=== PATIENT | male | born 1970 | race Caucasian/White ===

== ENCOUNTER 2017-07-27 14:39 | Emergency (ER) | payer MEDICARE, MEDICAID ==
[~2017-07-27] VITALS: Ht 190.5 cm; Wt 129.3 kg
[2017-07-27 15:25] LABS: BASOPHILS # (AUTO) 0.1 X10'3 (0-0.2); BASOPHILS % (AUTO) 1.1 % (0-1); EOSINOPHILS # (AUTO) 0.3 X10'3 (0-0.9); EOSINOPHILS % (AUTO) 2.3 % (0-6); HEMATOCRIT 43.8 % (42.0-52.0); LYMPHOCYTES # (AUTO) 2.2 X10'3 (1.1-4.8); LYMPHOCYTES % (AUTO) 18.6 % (21-51); MEAN CORPUSCULAR HEMOGLOBIN 30.3 PG (27.0-31.0); MEAN CORPUSCULAR HGB CONC 34.3 % (33.0-36.5); MEAN CORPUSCULAR VOLUME 88.2 FL (78-98); MEAN PLATELET VOLUME 8.1 FL (7.4-10.4); MONOCYTES # (AUTO) 0.8 X10'3 (0-0.9); MONOCYTES % (AUTO) 6.2 % (2-12); NEUTROPHILS # (AUTO) 8.7 X10'3 (1.8-7.7); NEUTROPHILS % (AUTO) 71.8 % (42-75); PLATELET COUNT 212 X10'3 (140-440); RED BLOOD COUNT 4.97 X10'6 (4.70-6.10); RED CELL DISTRIBUTION WIDTH 14.5 % (11.5-14.5); WHITE BLOOD COUNT 12.1 X10'3 (4.5-11.0)
[2017-07-27 15:32] LABS: CLARITY,URINE CLEAR (Clear); COLOR,URINE YELLOW (Yellow); GLUCOSE, URINE NEGATIVE (Neg); KETONES,URINE NEGATIVE (Neg); LEUKOCYTE ESTERASE ,URINE NEGATIVE (Neg); NITRITES, URINE NEGATIVE (Neg); OCCULT BLOOD,URINE NEGATIVE (Neg); PH,URINE 5.5 (4.8-8.0); PROTEIN,URINE NEGATIVE (Neg); UROBILINOGEN,URINE 0.2 E.U/dL (0.2-1.0)
[2017-07-27 15:42] LABS: ALANINE AMINOTRANSFERASE 59 U/L (12-78); ALBUMIN/GLOBULIN RATIO 1.1 (1.1-1.5); ALKALINE PHOSPHATASE 72 IU/L (46-116); ANION GAP 11 (8-16); ASPARTATE AMINO TRANSFERASE 60 U/L (10-37); BILIRUBIN,TOTAL 0.5 MG/DL (0.1-1.0); BLOOD UREA NITROGEN 17 MG/DL (7-18); CALCIUM 9.5 MG/DL (8.5-10.1); CHLORIDE 106 MMOL/L (99-107); CREATININE 1.31 MG/DL (0.60-1.10); GLUCOSE 121 MG/DL (70-104); POTASSIUM 3.9 MMOL/L (3.5-5.1); SODIUM 141 MMOL/L (135-145); TOTAL CARBON DIOXIDE 24.5 MMOL/L (24-32); TOTAL PROTEIN 7.5 G/DL (6.4-8.2); eGFR 59 ML/MIN
[2017-07-27 15:44] LABS: URINE AMPHETAMINE SCREEN NEGATIVE (Neg); URINE BARBITUATE SCREEN NEGATIVE (Neg); URINE BENZODIAZEPINES SCREEN NEGATIVE (Neg); URINE CANNABINOID SCREEN POSITIVE (Neg); URINE COCAINE SCREEN NEGATIVE (Neg); URINE METHADONE SCREEN NEGATIVE (Neg); URINE OPIATE SCREEN NEGATIVE (Neg); URINE PHENCYCLIDINE SCREEN NEGATIVE (Neg)
[2017-07-27 15:46] LABS: UA COLLECTION TYPE NON-SPECIFIED
[2017-07-27] MEDS ORDERED: BENZ1TAB7 PO (15:49)
[2017-07-27] MEDS ORDERED: ARIP15TA8 PO (15:49)
[2017-07-27 15:51] LABS: ETHANOL < 0.010 GM/DL (0.0-0.010)
[2017-07-27 15:54] VITALS: BP 124/79
== END 2017-07-27 16:17 ==
LOC: ER 14:40
DX: F20.9 Schizophrenia, unspecified (principal); I10 Essential (primary) hypertension; F31.9 Bipolar disorder, unspecified; F17.200 Nicotine dependence, unspecified, uncomplicated; F12.10 Cannabis abuse, uncomplicated; R05 Cough; Z79.899 Other long term (current) drug therapy
CPT/HCPCS: 36415; 71045; 80053; 80305; 80320; 81003; 84443; 85025; 99285

== ENCOUNTER 2017-07-27 16:13 | Inpatient (IN) | payer MEDICARE, MEDICAID ==
[~2017-07-27] VITALS: Ht 190.5 cm; Wt 129.0 kg
[~2017-07-27 16:13] MED LIST: ARIP15TA8 PO; BENZ1TAB7 PO
[2017-07-27] MEDS ORDERED: mag hydrox/Alum hydrox/simeth 30ml oral suspension PO PRN (17:20)
[2017-07-27] MEDS ORDERED: acetaminophen 325mg tablet PO PRN ×2 (17:20)
[2017-07-27] MEDS ORDERED: magnesium hydroxide 30ml (MOM) UD suspension PO PRN (17:20)
[2017-07-27 17:39] VITALS: BP 124/79
[2017-07-27 19:00] VITALS: BP 124/88
[2017-07-27] MEDS: benztropine 1mg tablet PO SCH (19:21)
[2017-07-27] MEDS ORDERED: temazepam 15mg capsule PO PRN (19:55)
[2017-07-27] MEDS ORDERED: OLANZapine 5mg rapidly disint. tablet PO PRN (19:55)
[2017-07-27] MEDS ORDERED: OLANZapine 2.5MG tablet PO ONE (19:55)
[2017-07-27] MEDS ORDERED: LORazepam 1 MG tablet PO PRN (19:55)
[2017-07-27 20:30] VITALS: BP 120/80
[2017-07-28 07:25] VITALS: BP 132/93
[2017-07-28 07:43] LABS: HEMOGLOBIN A1C 5.7 % (4.5-6.2)
[2017-07-28 07:56] LABS: CHOL/HDL RATIO 8.3 (0.00-4.99); CHOLESTEROL 208 MG/DL (0-200); HDL CHOLESTEROL 25 MG/DL (35-60); LDL CHOLESTEROL 157 MG/DL (50-100); TRIGLYCERIDES 183 MG/DL (20-135)
[2017-07-28] MEDS ORDERED: aripiprazole 5mg tablet PO SCH (08:00)
[2017-07-28] MEDS: benztropine 1mg tablet PO SCH ×2 (08:27→20:35)
[2017-07-28] MEDS: nicotine 21mg patch - 24 hr TD SCH (08:33)
[2017-07-28] MEDS: OLANZapine 5mg rapidly disint. tablet PO SCH (12:55)
[2017-07-28 18:18] LABS: ALBUMIN 4.2 G/DL (3.4-5.0); ANION GAP 11 (8-16); BLOOD UREA NITROGEN 20 MG/DL (7-18); BUN/CREATININE RATIO 16.3 (5.4-32.0); CALCIUM 9.5 MG/DL (8.5-10.1); CHLORIDE 105 MMOL/L (99-107); CREATININE 1.23 MG/DL (0.60-1.10); GLUCOSE 102 MG/DL (70-104); POTASSIUM 4.2 MMOL/L (3.5-5.1); SODIUM 141 MMOL/L (135-145); TOTAL CARBON DIOXIDE 24.8 MMOL/L (24-32); eGFR 63 ML/MIN
[2017-07-28 18:24] LABS: BASOPHILS # (AUTO) 0.1 X10'3 (0-0.2); BASOPHILS % (AUTO) 1.2 % (0-1); EOSINOPHILS # (AUTO) 0.2 X10'3 (0-0.9); EOSINOPHILS % (AUTO) 2.1 % (0-6); HEMATOCRIT 44.1 % (42.0-52.0); HEMOGLOBIN 15.1 g/dl (14.0-17.9); LYMPHOCYTES # (AUTO) 2.7 X10'3 (1.1-4.8); LYMPHOCYTES % (AUTO) 24.1 % (21-51); MEAN CORPUSCULAR HEMOGLOBIN 30.1 PG (27.0-31.0); MEAN CORPUSCULAR HGB CONC 34.3 % (33.0-36.5); MEAN CORPUSCULAR VOLUME 87.7 FL (78-98); MEAN PLATELET VOLUME 8.8 FL (7.4-10.4); MONOCYTES # (AUTO) 0.9 X10'3 (0-0.9); MONOCYTES % (AUTO) 8.2 % (2-12); NEUTROPHILS # (AUTO) 7.2 X10'3 (1.8-7.7); NEUTROPHILS % (AUTO) 64.4 % (42-75); PLATELET COUNT 216 X10'3 (140-440); RED BLOOD COUNT 5.03 X10'6 (4.70-6.10); RED CELL DISTRIBUTION WIDTH 14.4 % (11.5-14.5); WHITE BLOOD COUNT 11.2 X10'3 (4.5-11.0)
[2017-07-28 19:00] VITALS: BP 145/82
[2017-07-28] MEDS: temazepam 15mg capsule PO SCH (20:35)
[2017-07-28] MEDS: olanzapine 10mg tablet PO SCH (20:35)
[2017-07-29 07:38] VITALS: BP 124/90
[2017-07-29] MEDS: nicotine 21mg patch - 24 hr TD SCH (08:00)
[2017-07-29] MEDS: atorvastatin 10mg tablet PO SCH (08:33)
[2017-07-29] MEDS: benztropine 1mg tablet PO SCH ×2 (08:34→20:27)
[2017-07-29] MEDS: OLANZapine 5mg rapidly disint. tablet PO SCH ×2 (08:34→13:33)
[2017-07-29 19:59] VITALS: BP 138/86
[2017-07-29] MEDS: temazepam 15mg capsule PO SCH (20:27)
[2017-07-29] MEDS: olanzapine 10mg tablet PO SCH (20:39)
[2017-07-30] MEDS: OLANZapine 5mg rapidly disint. tablet PO SCH ×2 (07:30→12:30)
[2017-07-30 08:00] VITALS: BP 146/97
[2017-07-30] MEDS: nicotine 21mg patch - 24 hr TD SCH ×2 (08:00→11:45)
[2017-07-30] MEDS: benztropine 1mg tablet PO SCH ×2 (08:00→20:16)
[2017-07-30] MEDS: atorvastatin 10mg tablet PO SCH (08:00)
[2017-07-30] MEDS ORDERED: PALIPERIDONE 3 MG TAB.ER.24 PO ONE (16:40)
[2017-07-30 19:11] VITALS: BP 137/68
[2017-07-30] MEDS: temazepam 15mg capsule PO SCH (20:18)
[2017-07-30] MEDS: olanzapine 10mg tablet PO SCH (20:21)
[2017-07-31 07:26] VITALS: BP 120/80
[2017-07-31] MEDS: OLANZapine 5mg rapidly disint. tablet PO SCH (07:30)
[2017-07-31] MEDS: PALIPERIDONE 3 MG TAB.ER.24 PO SCH (07:39)
[2017-07-31] MEDS: nicotine 21mg patch - 24 hr TD SCH (07:39)
[2017-07-31] MEDS: atorvastatin 10mg tablet PO SCH (07:39)
[2017-07-31] MEDS: benztropine 1mg tablet PO SCH ×2 (07:39→20:12)
[2017-07-31] MEDS ORDERED: benztropine 1mg tablet PO ONE (09:20)
[2017-07-31 19:27] VITALS: BP 149/78
[2017-07-31] MEDS ORDERED: temazepam 15mg capsule PO SCH (21:00)
[2017-08-01 07:22] VITALS: BP 121/69
[2017-08-01] MEDS: atorvastatin 10mg tablet PO SCH (08:02)
[2017-08-01] MEDS: benztropine 1mg tablet PO SCH ×2 (08:02→19:38)
[2017-08-01] MEDS: PALIPERIDONE 3 MG TAB.ER.24 PO SCH (08:02)
[2017-08-01] MEDS: nicotine 21mg patch - 24 hr TD SCH (08:03)
[2017-08-01] MEDS ORDERED: paliperidone palmitate inj 234 MG/1.5 ML SYRINGE IM ONE (17:55)
[2017-08-01 20:00] VITALS: BP 131/85
[2017-08-02 07:33] VITALS: BP 140/72
[2017-08-02] MEDS: benztropine 1mg tablet PO SCH ×2 (09:08→20:34)
[2017-08-02] MEDS: nicotine 21mg patch - 24 hr TD SCH (09:08)
[2017-08-02] MEDS: PALIPERIDONE 3 MG TAB.ER.24 PO SCH (09:09)
[2017-08-02] MEDS: atorvastatin 10mg tablet PO SCH (09:09)
[2017-08-02 20:00] VITALS: BP 122/79
[2017-08-03 07:08] VITALS: BP 122/72
[2017-08-03] MEDS: nicotine 21mg patch - 24 hr TD SCH (08:20)
[2017-08-03] MEDS: benztropine 1mg tablet PO SCH (08:20)
[2017-08-03] MEDS: PALIPERIDONE 3 MG TAB.ER.24 PO SCH (08:21)
[2017-08-03] MEDS: atorvastatin 10mg tablet PO SCH (08:21)
[2017-08-03] MEDS ORDERED: ATOR10TA PO (08:41)
[2017-08-03] MEDS ORDERED: PALI3TAB5 PO (08:41)
[2017-08-03] MEDS ORDERED: BENZ2TAB7 PO (08:41)
[2017-08-03] MEDS ORDERED: NICO-687 TD (08:41)
[2017-08-03 08:59] LABS: ALBUMIN 3.9 G/DL (3.4-5.0); ANION GAP 9 (8-16); BLOOD UREA NITROGEN 18 MG/DL (7-18); CHLORIDE 104 MMOL/L (99-107); GLUCOSE 117 MG/DL (70-104); POTASSIUM 4.2 MMOL/L (3.5-5.1); SODIUM 141 MMOL/L (135-145); TOTAL CARBON DIOXIDE 27.8 MMOL/L (24-32); eGFR 65 ML/MIN
== END 2017-08-03 11:45 | disposition home or self-care (01) | DRG 885 ==
LOC: ADULT MH 16:13
PROVIDERS: ADMIT Psychiatry & Neurology Psychiatry; ATTEND Psychiatry & Neurology Psychiatry
DX: F25.0 Schizoaffective disorder, bipolar type (principal); N17.9 Acute kidney failure, unspecified; F22 Delusional disorders; Z91.14 Patient's other noncompliance with medication regimen; E78.5 Hyperlipidemia, unspecified; M17.9 Osteoarthritis of knee, unspecified; R25.1 Tremor, unspecified; F12.10 Cannabis abuse, uncomplicated; F10.11 Alcohol abuse, in remission; F17.210 Nicotine dependence, cigarettes, uncomplicated; Z88.0 Allergy status to penicillin; Z79.899 Other long term (current) drug therapy; Z81.8 Family history of other mental and behavioral disorders
CPT/HCPCS: 36415; 80048; 80061; 83036; 85025; 87070; 99406; J3490